=== PATIENT | male | born 1950 | race Hispanic/Latino ===

== ENCOUNTER 2017-08-10 08:55 | Day surgery (SDC) | payer MEDICARE ==
[2017-07-31 09:57] VITALS: BMI 25.9
[2017-08-10] MEDS ORDERED: Bupivacaine 0.5% Inj(30mL) ONE (09:02)
[2017-08-10] MEDS ORDERED: Lidocaine 1% Inj (20ml) ONE (09:02)
[2017-08-10] MEDS ORDERED: Propofol 10 mg/ml Inj (20 ML) ONE ×3 (09:40→12:02)
[2017-08-10] MEDS ORDERED: Midazolam 2 MG/2 ML VIAL ONE ×2 (09:40→11:06)
[2017-08-10 09:49] LABS: INR 1.07 (0.93-1.08); PARTIAL THROMBOPLASTIN TIME 29.2 Seconds (25.1-36.5); PROTHROMBIN TIME 12.3 SECONDS (9.4-12.5)
[2017-08-10] MEDS ORDERED: Lactated Ringer's 1,000 ML IV SCH (12:30)
--- NOTE | 2017-08-10 12:34 | PCM.SURG1 ---
Surgeon's Initial Post Op Note - Surgeon's Notes Surgeon: Dr. Guerra Tap Puller: Cm PGY2, Kateryna PGY2 Type of Anesthesia: IV Sedation, Local Anesthesia Administered By: Dr. Leatha Ovalles Pre-Operative Diagnosis: Skin lesions of the right chest, right calf, and left upper arm. Operative Findings: see operative report Post-Operative Diagnosis: same Operation Performed: Excision of right chest wall lesion, right calf lesion. Punch biopsy of left upper arm lesion Specimen/Specimens Removed: Right chest wall skin lesion (Right lateral border marked with suture). Right calf skin lesion (Right lateral border marked with suture). Left Upper arm skin lesion Estimated Blood Loss: EBL {In ML}: 5 Blood Products Given: N/A Drains Used: No Drains Post-Op Condition: Good Date of Surgery/Procedure: 08/10/17 Time of Surgery/Procedure: 12:34
[2017-08-10 13:12] VITALS: O2SAT 97
[2017-08-10 13:40] VITALS: BP 127/71; PULSE 58; RESP 18; TEMP 97.8
--- NOTE | 2017-08-11 08:18 | OP ---
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 OPERATION PERFORMED: 1. Wide and deep excision with advancement flaps of the chest wall. 2. Wide and deep excision of the right leg lesion with advancement flaps and core biopsy of the lesion on the left arm. DESCRIPTION OF PROCEDURE: In the operating room, the patient was identified by name, name of procedure, and laterality. Simultaneously, the chest, right leg, and left thigh were prepped and draped using Betadine as there was an open lesion on the chest. Serially, starting with the chest wall, the area was mapped out with a margin, an ellipse was made; having been injected with Marcaine and Xylocaine, the ellipse was taken down to the fascia and removed. There was bleeding in the superior part of the flap, which required suture ligation; otherwise, cautery was done. Flaps were raised superiorly and inferiorly with the . The incision was then closed with a central tensioning stitch followed by subcutaneous Vicryl and a subcuticular PDS above and below. It was a beautiful closure. The specimen was sent with a tag on the lateral side and marked appropriately. The right leg was then dealt with an equal manner. The ellipse was made and designed, the skin was less mobile, required larger flaps superiorly and inferiorly. A tensioning stitch was placed and it was elected to close this with mattress stitches as there was some tension. Incision was closed mattress stitches of Prolene. Light pressure dressing was applied including an [place] bandage. The specimen was sent off and marked with a stitch on the lateral edge. These were dressed. The left arm was then approached. It was prepped and draped as before, and it was biopsied with a cookie cutter. The specimen was sent off. The incision was closed with Vicryl. Light dressing was applied. The patient was taken to recovery room in good condition after sponge and needle counts were declared correct. Subhash Guerra MD
== END 2017-08-10 14:45 | disposition home or self-care (01) ==
LOC: SDS 08:55
PROVIDERS: ATTEND Surgery
DX: C44.519 Basal cell carcinoma of skin of other part of trunk (principal); C44.712 Basal cell carcinoma of skin of right lower limb, including hip; C44.619 Basal cell carcinoma of skin of left upper limb, including shoulder
CPT/HCPCS: 11100; 14000; 36415; 85610; 85730; 88305; 88309; 97116; J2001; J2250; J2704; J3010; J7120 ×2